=== PATIENT | female | born 2000 | race Caucasian/White ===

== ENCOUNTER 2024-10-12 12:17 | Emergency (ER) | payer OTHER ==
[~2024-10-12] VITALS: Ht 160 cm; Wt 49.0 kg
[2024-10-12 12:29] VITALS: O2SAT 100
[2024-10-12 12:36] VITALS: TEMP 36.7; O2SAT 100
[2024-10-12] MEDS ORDERED: IBUPROFEN 800MG TABLET PO ONE (13:15)
[2024-10-12 14:39] VITALS: BP 112/67; PULSE 98; RESP 18
[2024-10-12] MEDS: IBUPROFEN 400MG TABLET PO NR (14:39)
[2024-10-12 16:43] LABS: BASOPHILS % 0.5 % (0.0-2.0); EOSINOPHILS % 0.3 % (0.0-5.0); HEMOGLOBIN. 13.4 g/dL (12.0-16.0); MEAN CORPUSCULAR HEMOGLOBIN 31.5 pg (28.0-32.0); MEAN CORPUSCULAR HGB CONC 33.6 g/dL (31.0-37.0); MEAN CORPUSCULAR VOLUME 93.5 fL (81.0-99.0); MEAN PLATELET VOLUME 8.7 fl (7.4-10.4); MONOCYTES % 5.3 % (2.0-8.0); NEUTROPHILS % 71.9 % (40.0-76.0); PLATELET 222 x1000/uL (130-400); RED BLOOD CELL COUNT 4.27 mill/uL (4.2-5.4); RED CELL DISTRIBUTION WIDTH 12.8 % (11.6-14.6); WHITE BLOOD COUNT 9.8 x1000/uL (4.5-11.0)
[2024-10-12 16:52] LABS: CHLORIDE 102 mEq/L (98-107); POTASSIUM 3.7 mEq/L (3.5-5.1); SODIUM 136 mEq/L (136-145)
[2024-10-12 16:53] LABS: CARBON DIOXIDE 24 mEq/L (21-32)
[2024-10-12 16:54] LABS: CALCIUM 9.8 mg/dL (8.7-10.4)
[2024-10-12 16:58] LABS: CREATININE 0.8 mg/dL (0.6-1.0); GLUCOSE 79 mg/dL (70-105)
[2024-10-12 16:59] LABS: UREA NITROGEN BLOOD 12 mg/dL (9-23)
[2024-10-12 17:00] LABS: ALANINE AMINOTRANSFERASE 16 IU/L (10-49); ALBUMIN 4.6 g/dL (3.2-4.8); ASPARTATE AMINOTRANSFERASE 20 IU/L (<34); HCG SCREEN NEGATIVE
[2024-10-12 17:01] LABS: BILIRUBIN DIRECT 0.2 mg/dL (<=3.0); BILIRUBIN TOTAL 0.7 mg/dL (0.1-1.0); PROTEIN TOTAL 6.9 g/dL (6.0-8.3)
[2024-10-12 17:21] LABS: CLARITY URINE CLOUDY (CLEAR); COLOR URINE YELLOW (YELLOW); GLUCOSE URINE NEGATIVE (NEGATIVE); KETONES URINE 1+ (NEGATIVE); LEUKOCYTE ESTERASE URINE NEGATIVE (NEGATIVE); NITRITE URINE NEGATIVE (NEGATIVE); OCCULT BLOOD URINE NEGATIVE (NEGATIVE); PROTEIN URINE NEGATIVE (NEGATIVE); SPECIFIC GRAVITY URINE 1.025 (1.005-1.030)
[2024-10-12 18:49] LABS: BACTERIA URINE 3+; RBC URINE 0-2 /hpf (0-2); SQUAMOUS EPITHELIAL CELL URINE 1+ /lpf (RARE/1+)
[2024-10-12 18:50] LABS: WBC URINE 0-2 /hpf (0-2)
[2024-10-12] MEDS ORDERED: ACETAMINOPHEN 325MG TABLET PO NR (20:45)
== END 2024-10-12 20:55 | disposition home or self-care (01) ==
LOC: ER 12:17
DX: R10.31 Right lower quadrant pain (principal)
CPT/HCPCS: 36415; 74176; 76830; 76856; 80048; 80076; 81003; 81025; 84703; 85025; 86850; 86900; 99284